=== PATIENT | female | born 1985 | race Two or more races ===

== ENCOUNTER 2017-01-30 14:38 | Emergency (ER) | payer OTHER ==
[2017-01-30] MEDS ORDERED: fentaNYL-PF 50 mCg/mL 2 mL Inj ONE (14:43)
[2017-01-30] MEDS: fentaNYL-PF 50 mCg/mL 2 mL Inj IVPUSH PRN ×2 (14:48→14:55)
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
[2017-01-30 15:03] LABS: BASOPHILS % (AUTO) 0.2 % (0-3); EOSINOPHILS % (AUTO) 0.3 % (0-5); MONOCYTES % (AUTO) 6.8 % (4-12); Mean Corpuscular Hemoglobin 26.7 pg (27.0-35.0); Mean Corpuscular Volume 81.4 fL (81-100); NEUTROPHILS % (AUTO) 72.8 % (40-74); Platelet Count 108 bil/L (150-400)
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
== END 2017-01-30 15:32 | disposition short-term general hospital (02) ==
LOC: SED 14:38
DX: S36.899A Unspecified injury of other intra-abdominal organs, initial encounter (principal); S12.100A Unspecified displaced fracture of second cervical vertebra, initial encounter for closed fracture; I95.9 Hypotension, unspecified; V43.62XA Car passenger injured in collision with other type car in traffic accident, initial encounter; Y93.9 Activity, unspecified; Y92.410 Unspecified street and highway as the place of occurrence of the external cause; Y99.8 Other external cause status
CPT/HCPCS: 36415; 70450; 71010; 71260; 72125; 72170; 74177; 80053; 84703; 85014; 85025; 86850; 96374; 99291; G0390; G0480; J3010; Q9967